=== PATIENT | female | born 1985 | race Caucasian/White ===

== ENCOUNTER 2019-12-14 12:10 | Emergency (ER) | payer MEDICARE, SELFPAY ==
[2019-12-14 12:47] VITALS: BP 138/80; PULSE 103; RESP 14; TEMP 36.7; O2SAT 98; BMI 44.3
== END 2019-12-14 17:58 | disposition left against medical advice (07) ==
PROVIDERS: Emergency Provider Family Medicine
DX: Z53.21 Procedure and treatment not carried out due to patient leaving prior to being seen by health care provider (principal)
CPT/HCPCS: 99281

== ENCOUNTER 2019-12-17 21:11 | Emergency (ER) | payer MEDICARE, SELFPAY ==
[2019-12-17 21:17] VITALS: BP 144/95; PULSE 113; RESP 18; TEMP 36.4; O2SAT 94; BMI 44.3
--- NOTE | 2019-12-17 22:05 | ED_ITS ---
HPI - Female Genitourinary General: Chief complaint: Urogenital-Female Stated complaint: catheter issues Time Seen by Provider: 12/17/19 22:05 Source: patient Mode of arrival: ambulatory Limitations: no limitations History of Present Illness: HPI Narrative: Patient comes in tonight for concerns of catheter with urine leaking around it. Patient has a history of end-stage renal disease and has to wear a catheter due to urinary retention. Patient denies any fever chills nausea or vomiting. Patient appears well. Patient appears in no pain. Review of Systems General: Reports: 10 or more systems reviewed and unremarkable except in HPI and below : Reports: other (Urinary cath dysfunction) PFSH ED PFSH: Social History Smoking and tobacco status: never smoked Physical Exam Const: COMMON NORMALS: no acute distress and patient oriented x3 GENERAL APPEARANCE: cooperative HENMT: COMMON NORMALS: normocephalic and Normal external nose present HEAD & SCALP: normal to inspection and normocephalic NOSE: Normal external nose present MOUTH: Normal oral and palatal mucosa present THROAT: posterior oropharynx normal Eye: GENERAL EYE: appearance normal, both eyes and all related structures Neck/C-Spine: COMMON NORMALS: full ROM Chest: COMMONS NORMALS: normal inspection of the chest Resp: COMMON NORMALS: normal respiratory effort EFFORT & INSPECTION: Yes able to speak in complete sentences Cardio: COMMON NORMALS: regular rate and regular rhythm RATE: regular rate RHYTHM: regular rhythm GI: COMMON NORMALS: non-tender : COMMON NORMALS: Yes no CVA tenderness BLADDER/KIDNEY EXAM: Yes no CVA tenderness Back/Pelvis: COMMON NORMALS: no CVA tenderness and thoracic and lumbar spine normal to inspection Extremity: COMMON NORMALS: normal to inspection Neuro: COMMON NORMALS: patient oriented x3 and moves all extremities Psych: COMMON NORMALS: mental status grossly normal and cooperative Skin: COMMON NORMALS: no rashes or lesions noted GENERAL SKIN EXAM: no rashes or lesions noted Course Vital Signs: Vital signs: Vital Signs Temperature 97.6 F 12/17/19 21:17 Pulse Rate 113 H 12/17/19 21:17 Respiratory Rate 18 12/17/19 21:17 Blood Pressure 144/95 12/17/19 21:17 Pulse Oximetry 94 12/17/19 21:17 MDM - Female MDM Narrative: Medical decision making narrative: Patient comes in today for complaints of a leaking Morgan catheter. Patient denies any pain or fever. Patient appears well. Exam notes respirations were even lungs were clear to auscultation. Abdomen soft nontender. Vital signs were normal. Differential diagnosis includes but not limited to failed urinary catheter equipment, or urinary tract infection. Catheter was exchanged per nursing. Patient was r ecommended to follow-up with primary care as needed. Patient reports understanding agreed to plan. Discharge Plan Discharge Patient Disposition: Home, Self-Care Clinical Impression: Chronic indwelling Morgan catheter Morgan catheter problem Qualifiers: Encounter type: initial encounter Qualified Code(s): T83.9XXA - Unspecified complication of genitourinary prosthetic device, implant and graft, initial encounter Condition: Stable Discharge Orders: Discharge Order (Routine); Ordered 12/17/19 Ordered By: Shimon Chavez Discharge Diet: Usual diet Discharge Activity: Increase activity as tolerated Activity Restrictions/Additional Instructions: Continue with routine catheter care and usual care plan. Return to the ER as needed for high fever or new concerns. Coding Level of Care Code ED Home Visit Field Care Manager for Meli Means Exam Comprehensive
[2019-12-17 23:57] VITALS: BP 132/90; PULSE 95; RESP 18; O2SAT 96
--- NOTE | 2019-12-18 00:07 | PC.NURSE ---
i agree with this assessment
== END 2019-12-18 00:07 | disposition home or self-care (01) ==
PROVIDERS: Emergency Provider Nurse Practitioner Family
DX: T83.9XXA Unspecified complication of genitourinary prosthetic device, implant and graft, initial encounter (principal)
CPT/HCPCS: 12345; 51702; 99282